=== PATIENT | female | born 1985 | race Caucasian/White ===

== ENCOUNTER 2020-01-25 11:29 | Observation (INO) | payer SELFPAY ==
[2020-01-25] MEDS ORDERED: CLINDAMYCIN IV 900MG 900 MG in PREMIX BAG 1 BAG IVPB ONE (11:54)
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
[2020-01-25] MEDS ORDERED: SODIUM CHLORIDE 0.9% 1000ML 1,000 ML IVS ONE (12:46)
[2020-01-25] MEDS ORDERED: ACETAMINOPHEN 500 MG TAB PO ONE (12:46)
[2020-01-25] MEDS ORDERED: MORPHINE SULFATE INJ 10 MG/ML VIAL IV ONE ×2 (13:29→15:36)
[2020-01-25] MEDS ORDERED: ONDANSETRON INJ 4 MG/2 ML VIAL IV ONE ×2 (13:30→15:36)
--- NOTE | 2020-01-25 15:51 | CT ---
EXAM DESCRIPTION: Head (accession [id number]), Maxillofacial (accession [id number]) CLINICAL HISTORY: 34 years Female, facial swelling COMPARISON: None. TECHNIQUE: Axial images obtained from the skull base to the vertex without intravenous contrast with images. Coronal and sagittal reformations provided. Axial images with coronal and sagittal reformations of the maxillofacial bones with intravenous contrast.. This exam was performed according to our departmental dose-optimization program, which includes automated exposure control, adjustment of the mA and/or kV according to patient size and/or use of iterative reconstruction technique. Time Last Seen Well (If known) for Code Stroke: n/a FINDINGS: Normal ventricles and sulci. Normal attenuation of brain parenchyma. No acute intracranial hemorrhage. No abnormal extra-axial fluid collection. No significant atherosclerosis. Calvarium intact. Mild right periorbital soft tissue swelling. Orbital globes and retrobulbar structures are unremarkable an intact. Mild soft tissue swelling extends over the right. Maxillary and right mandible subcutaneous tissue. Mild inflammatory change in the right maxillary sinus with up to 12 mm polyp or mucous retention cyst in the anterior maxillary sinus. Mild mucosal thickening of the ethmoid and right frontal sinuses. Remaining paranasal sinuses and mastoids are clear. IMPRESSION: 1. No acute intracranial abnormality. 2. Mild right periorbital soft tissue swelling which may be secondary to trauma or infection such as periorbital cellulitis. Correlate with history of injury. Additionally, subcutaneous edema extending along the right premaxillary and right premandibular soft tissues may represent extension of infection versus additional site of trauma. No underlying fracture. 3. Right maxillary, right ethmoid, right frontal sinus disease. Electronically signed by: Wagner Lynn MD 01/25/2020 3:49 PM CDT
[2020-01-25] MEDS ORDERED: DEXAMETHASONE INJ 10 MG/ML VIAL IV ONE (15:56)
--- NOTE | 2020-01-25 17:14 | HP ---
SUPERVISING PHYSICIAN: Rusty Vizcarra MD CHIEF COMPLAINT: Swelling and pain to the right side of her face. HISTORY OF PRESENT ILLNESS: This is a 34-year-old female patient who is known COVID positive came to the Emergency Room with right sided jaw pain that she felt was in an upper right tooth. She had had swelling for a couple of days. The pain had started the day before. She denied any fever or chills. Her initial vital signs were temperature 98.1, heart rate 96, blood pressure 110/66, respiratory rate 28, O2 saturation 98% on room air. Her lab shows WBC 10.6, hemoglobin 14.6, hematocrit 41.5. Electrolytes were basically within normal limits. Serum HCG was negative. Urinalysis was unremarkable. Blood cultures were drawn. CT of the head and maxillofacial reveals no acute intracranial abnormality and mild right periorbital soft tissue swelling which may be secondary to trauma or infection such as periorbital cellulitis and right maxillary, right ethmoid, frontal sinus disease. She was given some clindamycin in the ER as well as some fluids. She was also given morphine for her pain and I was called for hospital admission. After the patient was in her room, a repeat COVID-19 swab was done and it was also positive. PAST MEDICAL HISTORY: 1. Hypothyroidism. PAST SURGICAL HISTORY: 1. Appendectomy. 2. Tubal ligation. 3. Hysterectomy. 4. Cholecystectomy. OUTPATIENT MEDICATIONS: 1. Levothyroxine. ALLERGIES: NO KNOWN DRUG ALLERGIES. FAMILY HISTORY: Noncontributory. SOCIAL HISTORY: She lives in [place]. She is . She sees Dr. Gareth Sanchez as per primary care physician. She smokes half to one back of cigarettes daily. She denies any ETOH or illicit drug use. REVIEW OF SYSTEMS: GENERAL: Negative for fever, fatigue or weight changes. HEENT: Positive for dental problems and right sided face pain with swelling. Negative for vision changes or sore throat. RESPIRATORY: Negative for wheezing, coughing or shortness of breath. CARDIAC: Negative for chest pain, palpitations or tachycardia. GASTROINTESTINAL: Negative for nausea, vomiting, diarrhea, constipation. GENITOURINARY: Negative for hematuria, dysuria or polyuria. MUSCULOSKELETAL: Negative for arthralgias, myalgias. SKIN: Negative for lesions or rashes. NEUROLOGIC: Negative for headache, weakness or seizures. PHYSICAL EXAMINATION: VITAL SIGNS: Temperature 98.1, heart rate 68, blood pressure 115/76, respiratory rate 20, O2 saturation 90% on room air. GENERAL: This is a 34-year-old obese female lying in her hospital bed. She is in no acute distress. HEENT: Normocephalic, atraumatic. The right side of her face is slightly warm to touch. It is also diffusely edematous. Unable to assess if there is any tooth decay or dental problems. It is tender to palpation. NECK: Supple without mass. RESPIRATORY: Essentially clear to auscultation bilaterally. CHEST: There is equal rise and fall of the chest with inspiration and expiration. CARDIOVASCULAR: Regular rate and rhythm. GASTROINTESTINAL: Abdomen is soft, nondistended, nontender. Bowel sounds are positive. GENITOURINARY: Deferred. BACK: Deferred. EXTREMITIES: No cyanosis, clubbing or edema. NEUROLOGIC: Awake, alert and oriented times three. Cranial nerves II-XII are grossly intact as tested. LABORATORY: Labs and films are as per history of present illness. IMPRESSION: 1. Right sided periorbital cellulitis. 2. COVID-19 positive with no significant respiratory symptoms. 3. Tobacco abuse. 4. Hypothyroidism. PLAN: The patient has been admitted to the hospital. I have started her on vancomycin and Zosyn. I will restart her home medications as soon as they are available. We will have aggressive pulmonary hygiene. We will monitor her cultures as they become available. She is on Lovenox for DVT prophylaxis and a proton pump inhibitor for ulcer prophylaxis. I have ordered lab for in the morning. We will continue to monitor the patient closely and follow as needed. #[id number] [facility]
[2020-01-25] MEDS ORDERED: ONDANSETRON INJ 4 MG/2 ML VIAL IV PRN (17:27)
[2020-01-25] MEDS ORDERED: SODIUM CHLORIDE 0.9% (FLUSH) 10 ML SYG IV PRN (17:27)
[2020-01-25] MEDS ORDERED: ACETAMINOPHEN 325 MG TAB PO PRN (17:27)
[2020-01-25] MEDS ORDERED: IV SET AND CAP CHANGE INJ INJ SCH (17:30)
[2020-01-25] MEDS: HYDROcodone 5MG/APAP 325MG 1 EA TAB PO PRN ×2 (17:50→22:00)
[2020-01-25] MEDS ORDERED: ENOXAPARIN SODIUM 40 MG/0.4 ML SYG SUBCU SCH (18:00)
[2020-01-25] MEDS ORDERED: PIPERACILLIN/TAZOBACTAM 3.375 GM VIAL IVPB ONE ×2 (18:29→23:17)
[2020-01-25] MEDS ORDERED: SODIUM CHL 0.9% 100ML MINI-BAG 100 ML IVPB ONE ×2 (18:30→23:17)
[2020-01-25] MEDS: PIPERACILLIN/TAZOBACTAM 3.375 GM in SODIUM CHLORIDE 0.9% 100ML 100 ML IVPB SCH (18:33)
[2020-01-25] MEDS ORDERED: VANCOMYCIN HCL INJ 500 MG VIAL ONE (19:13)
[2020-01-25] MEDS ORDERED: VANCOMYCIN HCL INJ 1,000 MG VIAL IVPB ONE (19:13)
[2020-01-25] MEDS ORDERED: SODIUM CHLORIDE 0.9% 250ML 250 ML ONE (19:14)
[2020-01-25] MEDS ORDERED: CLINDAMYCIN IV 900MG 900 MG in PREMIX BAG 1 BAG IVPB SCH (20:00)
[2020-01-25] MEDS ORDERED: NICOTINE PATCH 21 MG TD SCH (20:00)
[2020-01-25] MEDS ORDERED: VANCOMYCIN HCL INJ 1,000 MG, VANCOMYCIN HCL INJ 500 MG in SODIUM CHLORIDE 0.9% 250ML 25... IVPB ONE (20:00)
[2020-01-25] MEDS: SODIUM CHLORIDE 0.9% (FLUSH) 10 ML SYG IV SCH (20:26)
[2020-01-26] MEDS: PIPERACILLIN/TAZOBACTAM 3.375 GM in SODIUM CHLORIDE 0.9% 100ML 100 ML IVPB SCH ×3 (00:27→13:08)
[2020-01-26] MEDS ORDERED: PIPERACILLIN/TAZOBACTAM 3.375 GM VIAL IVPB ONE (04:44)
[2020-01-26] MEDS ORDERED: SODIUM CHL 0.9% 100ML MINI-BAG 100 ML IVPB ONE (04:45)
[2020-01-26] MEDS ORDERED: PANTOPRAZOLE SODIUM IV 40 MG VIAL IV SCH (06:30)
--- NOTE | 2020-01-26 06:36 | RAD ---
EXAM: XR Chest, 1 View CLINICAL HISTORY: The patient is 34 years old and is Female; covid TECHNIQUE: Single upright portable view of the chest. COMPARISON: January 27, 2019. FINDINGS: Lungs: Hazy bibasilar airspace opacities and/or atelectasis. Small left pleural effusion. No pulmonary vascular congestion. Pleural space: No pneumothorax. Heart: Unremarkable. No cardiomegaly. Mediastinum: Unremarkable. Bones/joints: No acute fracture visualized. Upper abdomen: No free air in the visualized upper abdomen. IMPRESSION: Hazy bibasilar airspace opacities and/or atelectasis. Small left pleural effusion. Electronically signed by: Ese Livingston MD 01/26/2020 6:34 AM CDT
[2020-01-26] MEDS: HYDROcodone 5MG/APAP 325MG 1 EA TAB PO PRN (06:40)
[2020-01-26] MEDS ORDERED: VANCOMYCIN PER PHARMACY IVPB SCH (07:00)
[2020-01-26] MEDS: SODIUM CHLORIDE 0.9% (FLUSH) 10 ML SYG IV SCH (09:05)
[2020-01-26 09:09] VITALS: BP 120/74; TEMP 97.8; O2SAT 96
[2020-01-26] MEDS ORDERED: VANCOMYCIN HCL INJ 1,000 MG, VANCOMYCIN HCL INJ 250 MG in SODIUM CHLORIDE 0.9% 250ML 25... IVPB SCH (11:00)
--- NOTE | 2020-01-26 13:43 | SSS ---
SUPERVISING PHYSICIAN: Rusty Vizcarra MD DATE OF ADMISSION: 01/25/20 DATE OF DISCHARGE: 01/26/20 DISCHARGE DIAGNOSIS: 1. Right sided periorbital cellulitis. 2. COVID-19 positive with no significant respiratory symptoms. 3. Tobacco abuse. 4. Hypothyroidism. CHIEF COMPLAINT: Swelling and pain to the right side of her face. HISTORY OF PRESENT ILLNESS: This is a 34-year-old female patient who is known COVID positive came to the Emergency Room with right sided jaw pain that she felt was in an upper right tooth. She had had swelling for a couple of days. The pain had started the day before. She denied any fever or chills. Her initial vital signs were temperature 98.1, heart rate 96, blood pressure 110/66, respiratory rate 28, O2 saturation 98% on room air. Her lab shows WBC 10.6, hemoglobin 14.6, hematocrit 41.5. Electrolytes were basically within normal limits. Serum HCG was negative. Urinalysis was unremarkable. Blood cultures were drawn. CT of the head and maxillofacial reveals no acute intracranial abnormality and mild right periorbital soft tissue swelling which may be secondary to trauma or infection such as periorbital cellulitis and right maxillary, right ethmoid, frontal sinus disease. She was given some clindamycin in the ER as well as some fluids. She was also given morphine for her pain and I was called for hospital admission. After the patient was in her room, a repeat COVID-19 swab was done and it was also positive. PAST MEDICAL HISTORY: 1. Hypothyroidism. PAST SURGICAL HISTORY: 1. Appendectomy. 2. Tubal ligation. 3. Hysterectomy. 4. Cholecystectomy. OUTPATIENT MEDICATIONS: 1. Levothyroxine. ALLERGIES: NO KNOWN DRUG ALLERGIES. FAMILY HISTORY: Noncontributory. SOCIAL HISTORY: She lives in [place]. She is . She sees Dr. Gareth Sanchez as per primary care physician. She smokes half to one back of cigarettes daily. She denies any ETOH or illicit drug use. REVIEW OF SYSTEMS: GENERAL: Negative for fever, fatigue or weight changes. HEENT: Positive for dental problems and right sided face pain with swelling. Negative for vision changes or sore throat. RESPIRATORY: Negative for wheezing, coughing or shortness of breath. CARDIAC: Negative for chest pain, palpitations or tachycardia. GASTROINTESTINAL: Negative for nausea, vomiting, diarrhea, constipation. GENITOURINARY: Negative for hematuria, dysuria or polyuria. MUSCULOSKELETAL: Negative for arthralgias, myalgias. SKIN: Negative for lesions or rashes. NEUROLOGIC: Negative for headache, weakness or seizures. PHYSICAL EXAMINATION: VITAL SIGNS: Temperature 98.1, heart rate 68, blood pressure 115/76, respiratory rate 20, O2 saturation 90% on room air. GENERAL: This is a 34-year-old obese female lying in her hospital bed. She is in no acute distress. HEENT: Normocephalic, atraumatic. The right side of her face is slightly warm to touch. It is also diffusely edematous. Unable to assess if there is any tooth decay or dental problems. It is tender to palpation. NECK: Supple without mass. RESPIRATORY: Essentially clear to auscultation bilaterally. CHEST: There is equal rise and fall of the chest with inspiration and expiration. CARDIOVASCULAR: Regular rate and rhythm. GASTROINTESTINAL: Abdomen is soft, nondistended, nontender. Bowel sounds are positive. GENITOURINARY: Deferred. BACK: Deferred. EXTREMITIES: No cyanosis, clubbing or edema. NEUROLOGIC: Awake, alert and oriented times three. Cranial nerves II-XII are grossly intact as tested. LABORATORY: Followup laboratory shows WBC 113. Stable hemoglobin and hematocrit of 13.6 and 39.3. She did have a left shift on her differential. Electrolytes basically within normal limits except glucose slightly high at 143. MICROBIOLOGY: Preliminary blood cultures show both aerobic blood cultures are positive for gram positive cocci in clusters and both anaerobic blood cultures are negative to date. HOSPITAL COURSE: The patient has been admitted to the hospital. I have started her on vancomycin and Zosyn. I will restart her home medications as soon as they are available. We will have aggressive pulmonary hygiene. We will monitor her cultures as they become available. She is on Lovenox for DVT prophylaxis and a proton pump inhibitor for ulcer prophylaxis. I have ordered lab for in the morning. We will continue to monitor the patient closely and follow as needed. The patient improved overnight with the swelling decreased in the right side of her neck. She would like to go home on oral medications. We discussed that she would have to followup closely with her dentist and her primary care physician, Dr. Sanchez. She will be discharged home in stable condition. DISCHARGE PLAN: The patient will be discharged home in stable condition. She is to resume her previous diet and increase activity as tolerated. In addition to her home medications, she is to use ibuprofen for pain as well as Augmentin for 14 days and Bactrim for 14 days. She is also to take a probiotic twice daily for 30 days. She is to return to the hospital or followup with Dr. Sanchez or her dentist for any problems or complications. DISCHARGE MEDICATIONS: 1. Levothyroxine. 2. Align. 3. Augmentin. 4. Bactrim DS. #[id number] [facility]
[2020-01-26] MEDS ORDERED: NICOTINE PATCH 21 MG TD SCH (21:00)
== END 2020-01-26 12:55 | disposition home or self-care (01) ==
LOC: ER 11:29 → INTOOBSV 17:13 → OBSVTOIN 17:13 → MS 17:13
PROVIDERS: ADMIT Nurse Practitioner Acute Care; ATTEND Nurse Practitioner Acute Care
DX: L03.213 Periorbital cellulitis (principal); U07.1 COVID-19; F17.210 Nicotine dependence, cigarettes, uncomplicated; E03.9 Hypothyroidism, unspecified; R51 Headache; J90 Pleural effusion, not elsewhere classified; Z79.890 Hormone replacement therapy; Z90.49 Acquired absence of other specified parts of digestive tract; Z90.710 Acquired absence of both cervix and uterus
CPT/HCPCS: 96366; 96367; 96365; 96375 ×2; 96376 ×2; 96372; J2270 ×2; J2405 ×2; J2543 ×3; J7030; J7050 ×6; J3370 ×4; J1650; J3490; J1100; A4216 ×2; 80053 ×2; 36415 ×3; 87077; 87186; 81001; 85025 ×2; 87040 ×2; 84703; 71045; 70450; 70486; 99406; 94762; 99285; G0378; 87635